=== PATIENT | male | born 1935 | race Caucasian/White ===

== ENCOUNTER 2018-02-01 05:59 | Emergency (ER) | payer MEDICARE, OTHER ==
--- NOTE | 2018-02-01 07:42 | EDM.PDOC ---
ED HPI GENERAL MEDICAL PROBLEM - General Chief Complaint: Abdominal Pain Stated Complaint: ABD PAIN Time Seen by Provider: 02/01/18 07:15 Source of Information: Reports: Patient History Limitations: Reports: No Limitations - History of Present Illness INITIAL COMMENTS - FREE TEXT/NARRATIVE: 82-year-old male developed epigastric and right upper quadrant discomfort last evening that lasted four and half hours after eating a peanut butter and barlow sandwich. He has not had pain like this before so it concerned him. He had mild nausea but no shortness of breath, no diaphoresis, no radiation of pain, no diarrhea. He took some antacid which helped moderately. He lives alone so it concerned him so he called his neighbor but by the time he got to the hospital it was gone. He does have a pacemaker but he had no chest discomfort, he also had an angiogram within the last 2 years which was normal. Onset: Gradual Duration: Hour(s): Location: Reports: Abdomen (Pain lasted for half hours) Quality: Reports: Ache, Pressure Severity: Moderate Associated Symptoms: Reports: Loss of Appetite, Malaise. Denies: Chest Pain, Cough, Fever/Chills, Headaches, Shortness of Breath Right Upper Abdomen Pain Score (Numeric/FACES): 1 - Related Data Allergies Allergy/AdvReac Type Severity Reaction Status Date / Time No Known Allergies Allergy Verified 02/01/18 06:43 Home Meds: Home Meds Adalimumab [Humira] 40 mg SQ ASDIRECTED 02/01/18 [History] Finasteride 5 mg PO DAILY 02/01/18 [History] Lisinopril 10 mg PO DAILY 02/01/18 [History] Metoprolol Succinate 100 mg PO DAILY 02/01/18 [History] [place]-3/DHA/Epa/Fish Oil [Fish Oil 1,360 mg Softgel] 1 tab PO DAILY 02/01/18 [ History] Rivaroxaban [Xarelto] 20 mg PO DAILY 02/01/18 [History] Simvastatin [Zocor] 10 mg PO BEDTIME 02/01/18 [History] metFORMIN [Glucophage] 1,000 mg PO BIDMEALS 02/01/18 [History] Past Medical History HEENT History: Reports: Impaired Vision Cardiovascular History: Reports: Hypertension Endocrine/Metabolic History: Reports: Diabetes, Type II - Infectious Disease History Infectious Disease History: Reports: Chicken Pox, Measles, Mumps Social & Family History - Tobacco Use Smoking Status *Q: Never Smoker - Caffeine Use Caffeine Use: Reports: Coffee - Recreational Drug Use Recreational Drug Use: No ED ROS GENERAL - Review of Systems Review Of Systems: See Below Constitutional: Denies: Fever, Chills HEENT: Reports: No Symptoms Respiratory: Denies: Shortness of Breath Cardiovascular: Denies: Chest Pain GI/Abdominal: Reports: Abdominal Pain, Nausea. Denies: Diarrhea, Vomiting : Reports: No Symptoms Skin: Reports: No Symptoms Neurological: Reports: No Symptoms ED EXAM, GENERAL - Physical Exam Exam: See Below Exam Limited By: No Limitations General Appearance: Alert, No Apparent Distress Eye Exam: Bilateral Eye: Normal Inspection (No jaundice) Respiratory/Chest: No Respiratory Distress, Lungs Clear Cardiovascular: Regular Rate, Rhythm GI/Abdominal: Normal Bowel Sounds, Soft, Non-Tender Neurological: Alert, Oriented Psychiatric: Normal Affect, Normal Mood Course - Vital Signs Last Recorded V/S: Last Vital Signs Temp 95.7 F 02/01/18 06:37 Pulse 62 02/01/18 06:37 Resp 20 02/01/18 06:37 BP 178/76 H 02/01/18 06:37 Pulse Ox 98 02/01/18 06:37 - Re-Assessments/Exams Free Text/Narrative Re-Assessment/Exam: 02/01/18 07:41 I cannot reproduce his pain, he is totally asymptomatic with normal vitals. This sounds like it was gastrointestinal but resolved. He was comfortable without a workup at this time, if symptoms recur he'll return and even if they resolved by the time he gets here we'll do some investigation. He's going increase his diet as tolerated. Departure - Departure Time of Disposition: 07:54 Disposition: Home, Self-Care 01 Condition: Good Clinical Impression: Abdominal pain Qualifiers: Abdominal location: right upper quadrant Qualified Code(s): R10.11 - Right upper quadrant pain - Discharge Information Instructions: Abdominal Pain, Adult, [id number] Referrals: PCP,None [Primary Care Provider] - Forms: ED Department Discharge Care Plan Goals: Advance diet as tolerated. Return at any time if symptoms recur or you develop other concerns. After you have been well for several days, consider trying peanut butter on a pizza.
== END 2018-02-01 07:54 | disposition home or self-care (01) ==
LOC: JP.ED 05:59
DX: R10.11 Right upper quadrant pain (principal); I10 Essential (primary) hypertension; E11.9 Type 2 diabetes mellitus without complications; Z79.899 Other long term (current) drug therapy
CPT/HCPCS: 99282; 99284

== ENCOUNTER 2020-08-10 16:33 | Emergency (ER) | payer MEDICARE, OTHER ==
[2020-08-10] MEDS ORDERED: HYDROmorphone 1 MG/ML Syringe IM ONE (16:57)
--- NOTE | 2020-08-10 17:01 | EDM.PDOC ---
ED HPI GENERAL MEDICAL PROBLEM - General Chief Complaint: Cardiovascular Problem Stated Complaint: HIGH BP Time Seen by Provider: 08/10/20 16:55 Source of Information: Reports: Patient, RN Notes Reviewed History Limitations: Reports: No Limitations - History of Present Illness INITIAL COMMENTS - FREE TEXT/NARRATIVE: 84-year-old gentleman presents emergency department with a complaint of dental pain, he was at the dentist planning to get his tooth worked on by pulling and abscess removal and the dentist has provided pain medication and antibiotics however prior to the procedure he noticed his blood pressure was quite high systolic around 200 subsequently sent to the emergency department for evaluation, he denies any shortness of breath or chest pain complains of dental pain Lower Tooth/Teeth Pain Score (Numeric/FACES): 9 - Related Data Allergies Allergy/AdvReac Type Severity Reaction Status Date / Time No Known Allergies Allergy Verified 08/10/20 16:48 Home Meds: Home Meds Adalimumab [Humira] 40 mg SQ ASDIRECTED 02/01/18 [History] Finasteride 5 mg PO DAILY 02/01/18 [History] Lisinopril 10 mg PO DAILY 02/01/18 [History] Metoprolol Succinate 100 mg PO DAILY 02/01/18 [History] [place]-3/DHA/Epa/Fish Oil [Fish Oil 1,360 mg Softgel] 1 tab PO DAILY 02/01/18 [Hi story] Rivaroxaban [Xarelto] 20 mg PO DAILY 02/01/18 [History] Simvastatin [Zocor] 10 mg PO BEDTIME 02/01/18 [History] metFORMIN [Glucophage] 1,000 mg PO BIDMEALS 02/01/18 [History] Past Medical History HEENT History: Reports: Impaired Vision Cardiovascular History: Reports: Hypertension Respiratory History: Reports: None Gastrointestinal History: Reports: None Genitourinary History: Reports: None Musculoskeletal History: Reports: None Neurological History: Reports: None Psychiatric History: Reports: None Endocrine/Metabolic History: Reports: Diabetes, Type II Dermatologic History: Reports: Psoriasis - Infectious Disease History Infectious Disease History: Reports: Chicken Pox, Measles, Mumps - Past Surgical History Head Surgeries/Procedures: Reports: None Social & Family History - Tobacco Use Tobacco Use Status *Q: Never Tobacco User - Caffeine Use Caffeine Use: Reports: Coffee ED ROS GENERAL - Review of Systems Review Of Systems: See Below HEENT: Reports: Dental Pain Respiratory: Reports: No Symptoms Cardiovascular: Reports: No Symptoms ED EXAM, GENERAL - Physical Exam Exam: See Below Exam Limited By: No Limitations General Appearance: Alert (While I see that), WD/WN, No Apparent Distress Respiratory/Chest: No Respiratory Distress, Lungs Clear, Normal Breath Sounds, No Accessory Muscle Use, Chest Non-Tender Cardiovascular: Regular Rate, Rhythm, No Murmur Course - Vital Signs Last Recorded V/S: Last Vital Signs Temp 96.5 F L 08/10/20 16:50 Pulse 62 08/10/20 18:13 Resp 16 08/10/20 16:50 BP 212/92 H 08/10/20 18:13 Pulse Ox 94 L 08/10/20 18:09 - Orders/Labs/Meds Meds: Medications Discontinued Medications Generic Name Dose Route Start Last Admin Trade Name Johnq PRN Reason Stop Dose Admin Hydromorphone HCl 1 mg 08/10/20 16:57 08/10/20 17:03 Dilaudid IM 08/10/20 16:58 1 mg ONETIME ONE Administration Metoprolol Succinate 100 mg 08/10/20 17:57 08/10/20 18:13 Toprol Xl PO 08/10/20 17:58 100 mg ONETIME ONE Administration Departure - Departure Time of Disposition: 18:19 Disposition: Home, Self-Care 01 Condition: Fair Clinical Impression: Pain, dental Referrals: PCP,None [Primary Care Provider] - Forms: ED Department Discharge Additional Instructions: Continue with your regular medications do not take an extra metoprolol tonight, please keep your follow-up appointment with dentistry call return to the emergency department worsening of symptoms Sepsis Event Note (ED) - Evaluation Sepsis Screening Result: No Definite Risk - Focused Exam Vital Signs: Vital Signs Temp Pulse Pulse Resp BP BP Pulse Ox 08/10/20 18:13 62 212/92 H 08/10/20 18:09 60 212/92 H 94 L 08/10/20 17:46 59 L 212/94 H 94 L 08/10/20 17:15 59 L 229/97 H 95 08/10/20 16:50 96.5 F L 60 16 219/97 H 95 08/10/20 16:47 96.5 F L 60 16 219/97 H 95 - Assessment/Plan Plan: Assessment Acuity = acute Site and laterality = dental pain Etiology = dental abscess Manifestations = hypertension urgency Location of injury = Home Lab values = none Plan 1 mg Dilaudid did provide good pain relief for him, he has not taken his evening dose of metoprolol that was provided for him within 15 minutes of taking that medication his blood pressure did fall below 200, plan is to discharge home he does have antibiotics and pain medication for his dental abscess will continue to follow with dentistry This note was dictated using [employer] voice recognition software please call with any questions on syntax or grammar.
[2020-08-10] MEDS ORDERED: Metoprolol Succinate 50 MG Tab.ER PO ONE (17:57)
== END 2020-08-10 18:46 | disposition home or self-care (01) ==
LOC: JP.ED 16:33
DX: K08.89 Other specified disorders of teeth and supporting structures (principal); I10 Essential (primary) hypertension; E11.9 Type 2 diabetes mellitus without complications; Z79.84 Long term (current) use of oral hypoglycemic drugs; Z79.01 Long term (current) use of anticoagulants; Z79.899 Other long term (current) drug therapy
CPT/HCPCS: 96372; 99282; A9270; J1170

== ENCOUNTER 2020-08-19 03:40 | Emergency (ER) | payer MEDICARE ==
--- NOTE | 2020-08-19 04:37 | EDM.PDOC ---
ED HPI GENERAL MEDICAL PROBLEM - General Chief Complaint: ENT Problem Stated Complaint: TOOTH PULLED STILL BLEEDING Time Seen by Provider: 08/19/20 04:10 Source of Information: Reports: Patient, Old Records History Limitations: Reports: No Limitations - History of Present Illness INITIAL COMMENTS - FREE TEXT/NARRATIVE: 85 yo male on Xarelto presents with mouth bleeding after a dental extraction yesterday morning. Is here with his . Onset: Gradual Onset Date: 08/18/20 Onset Time: 21:00 Duration: Hour(s):, Constant Location: Reports: Face (mouth) Quality: Reports: Dull Severity: Mild Improves with: Reports: None Worsens with: Reports: None Context: Reports: Other (See HPI) Associated Symptoms: Reports: No Other Symptoms Treatments PATIENT CARE ASSISTANT: Reports: Other (see below) (gauze/pressure) denies pain Pain Score (Numeric/FACES): 0 - Related Data Allergies Allergy/AdvReac Type Severity Reaction Status Date / Time No Known Allergies Allergy Verified 08/19/20 03:54 Home Meds: Home Meds Adalimumab [Humira] 40 mg SQ ASDIRECTED 02/01/18 [History] Finasteride 5 mg PO DAILY 02/01/18 [History] Lisinopril 10 mg PO DAILY 02/01/18 [History] Metoprolol Succinate 100 mg PO DAILY 02/01/18 [History] [place]-3/DHA/Epa/Fish Oil [Fish Oil 1,360 mg Softgel] 1 tab PO DAILY 02/01/18 [History] Rivaroxaban [Xarelto] 20 mg PO DAILY 02/01/18 [History] Simvastatin [Zocor] 10 mg PO BEDTIME 02/01/18 [History] metFORMIN [Glucophage] 1,000 mg PO BIDMEALS 02/01/18 [History] Past Medical History HEENT History: Reports: Impaired Vision Cardiovascular History: Reports: Afib, Hypertension, Pacemaker Respiratory History: Reports: None Gastrointestinal History: Reports: None Genitourinary History: Reports: None Musculoskeletal History: Reports: None Neurological History: Reports: None Psychiatric History: Reports: None Endocrine/Metabolic History: Reports: Diabetes, Type II Dermatologic History: Reports: Psoriasis - Infectious Disease History Infectious Disease History: Reports: Chicken Pox, Measles, Mumps - Past Surgical History Head Surgeries/Procedures: Reports: None HEENT Surgical History: Reports: Other (See Below) Other HEENT Surgeries/Procedures: front lower tooth extracted 08/18/20 at 0800 Social & Family History - Tobacco Use Tobacco Use Status *Q: Never Tobacco User - Caffeine Use Caffeine Use: Reports: Coffee - Recreational Drug Use Recreational Drug Use: No ED ROS ENT - Review of Systems Review Of Systems: See Below Constitutional: Reports: No Symptoms HEENT: Reports: Other (oral bleeding) Cardiovascular: Reports: No Symptoms Skin: Reports: No Symptoms Neurological: Reports: No Symptoms ED EXAM, ENT - Physical Exam Exam: See Below Exam Limited By: No Limitations General Appearance: Alert, WD/WN, No Apparent Distress Eye Exam: Bilateral Eye: Normal Inspection Ears: Normal External Exam, Normal Canal, Hearing Grossly Normal Nose: Normal Inspection, No Blood Mouth/Throat: Normal Lips, Normal Oropharynx, Bleeding. No: Normal Teeth (recent lower central incisor extraction. ), Dental Pain Head: Atraumatic, Normocephalic Respiratory/Chest: No Respiratory Distress, No Accessory Muscle Use Cardiovascular: Regular Rate, Rhythm Neurological: Alert, Oriented, CN II-XII Intact, Normal Cognition, No Motor/Sensory Deficits Psychiatric: Normal Affect, Normal Mood Skin: Warm, Dry, Intact, Normal Color, No Rash Course - Vital Signs Last Recorded V/S: Last Vital Signs Temp 35.3 C L 08/19/20 04:03 Pulse 60 08/19/20 04:03 Resp 14 08/19/20 04:03 BP 166/73 H 08/19/20 04:03 Pulse Ox 96 08/19/20 04:03 - Re-Assessments/Exams Free Text/Narrative Re-Assessment/Exam: 08/19/20 04:37 had patient bite down on a wetted black tea bag. After about 25 min I re- examined him and the bleeding had stopped. 08/19/20 05:13 Departure - Departure Time of Disposition: 05:15 Disposition: Home, Self-Care 01 Condition: Good Clinical Impression: Postoperative bleeding from mouth - Discharge Information *PRESCRIPTION DRUG MONITORING PROGRAM REVIEWED*: Not Applicable *COPY OF PRESCRIPTION DRUG MONITORING REPORT IN PATIENT MIL: Not Applicable Referrals: PCP,None [Primary Care Provider] - Forms: ED Department Discharge Additional Instructions: Acetaminophen as needed for pain relief. Bite down on a wetted black tea bag to control bleeding. Recheck as needed. Sepsis Event Note (ED) - Evaluation Sepsis Screening Result: No Definite Risk - Focused Exam Vital Signs: Vital Signs Temp Pulse Resp BP Pulse Ox 08/19/20 04:03 35.3 C L 60 14 166/73 H 96 08/19/20 04:02 35.3 C L 60 14 166/73 H 96
== END 2020-08-19 05:21 | disposition home or self-care (01) ==
LOC: JP.ED 03:40
DX: K91.841 Postprocedural hemorrhage of a digestive system organ or structure following other procedure (principal); I48.91 Unspecified atrial fibrillation; I10 Essential (primary) hypertension; E11.9 Type 2 diabetes mellitus without complications; Z79.84 Long term (current) use of oral hypoglycemic drugs; Z79.01 Long term (current) use of anticoagulants; Z79.899 Other long term (current) drug therapy
CPT/HCPCS: 99283

== ENCOUNTER 2020-08-19 17:29 | Emergency (ER) | payer MEDICARE ==
[2020-08-19] MEDS ORDERED: Bupivacaine 0.5%/EPINEPHrine 1:200,000 1.8 ML Cartridge INJECT ONE (18:06)
--- NOTE | 2020-08-19 18:29 | EDM.PDOC ---
ED HPI GENERAL MEDICAL PROBLEM - General Chief Complaint: ENT Problem Stated Complaint: MOUTH BLEEDING Time Seen by Provider: 08/19/20 18:10 Source of Information: Reports: Patient History Limitations: Reports: No Limitations - History of Present Illness INITIAL COMMENTS - FREE TEXT/NARRATIVE: 85-year-old male who had an extraction of his lower incisor yesterday at the dentist office. He is on Xarelto and is having persistent oozing on the anterior aspect of the extraction. He had to sleep in a chair last night because it kept slowly oozing and it was bothersome. He called the dentist office this morning and they told him to come to the emergency room. He was seen, and encouraged to just use topical teabags until bleeding stops but that is not working. Onset: Sudden (36 hours ago after dental extraction) Associated Symptoms: Reports: No Other Symptoms Denies Pain Score (Numeric/FACES): 0 - Related Data Allergies Allergy/AdvReac Type Severity Reaction Status Date / Time No Known Allergies Allergy Verified 08/19/20 18:17 Home Meds: Home Meds Adalimumab [Humira] 40 mg SQ ASDIRECTED 02/01/18 [History] Finasteride 5 mg PO DAILY 02/01/18 [History] Lisinopril 10 mg PO DAILY 02/01/18 [History] Metoprolol Succinate 100 mg PO DAILY 02/01/18 [History] [place]-3/DHA/Epa/Fish Oil [Fish Oil 1,360 mg Softgel] 1 tab PO DAILY 02/01/18 [History] Rivaroxaban [Xarelto] 20 mg PO DAILY 02/01/18 [History] Simvastatin [Zocor] 10 mg PO BEDTIME 02/01/18 [History] metFORMIN [Glucophage] 1,000 mg PO BIDMEALS 02/01/18 [History] Past Medical History HEENT History: Reports: Impaired Vision Cardiovascular History: Reports: Afib, Hypertension, Pacemaker Respiratory History: Reports: None Gastrointestinal History: Reports: None Genitourinary History: Reports: None Musculoskeletal History: Reports: None Neurological History: Reports: None Psychiatric History: Reports: None Endocrine/Metabolic History: Reports: Diabetes, Type II Dermatologic History: Reports: Psoriasis - Infectious Disease History Infectious Disease History: Reports: Chicken Pox, Measles, Mumps - Past Surgical History Head Surgeries/Procedures: Reports: None HEENT Surgical History: Reports: Other (See Below) Other HEENT Surgeries/Procedures: front lower tooth extracted 08/18/20 at 0800 Social & Family History - Tobacco Use Tobacco Use Status *Q: Never Tobacco User Second Hand Smoke Exposure: No - Caffeine Use Caffeine Use: Reports: Coffee - Recreational Drug Use Recreational Drug Use: No ED ROS ENT - Review of Systems Review Of Systems: See Below Constitutional: Denies: Fever, Chills Respiratory: Denies: Shortness of Breath Cardiovascular: Denies: Chest Pain GI/Abdominal: Reports: Nausea (Becoming somewhat nauseous from a bleeding) Neurological: Reports: No Symptoms ED EXAM, ENT - Physical Exam Exam: See Below Exam Limited By: No Limitations General Appearance: Alert, No Apparent Distress Mouth/Throat: Other (There is a dental extraction of the right incisor on the mandible with some slow but steady oozing coming from the anterior aspect of the extraction) Course - Vital Signs Last Recorded V/S: Last Vital Signs Temp 96.7 F L 08/19/20 18:25 Pulse 58 L 08/19/20 18:25 Resp 16 08/19/20 18:25 BP 146/72 H 08/19/20 18:25 Pulse Ox 96 08/19/20 18:25 - Orders/Labs/Meds Meds: Medications Discontinued Medications Generic Name Dose Route Start Last Admin Trade Name Gunjan PRN Reason Stop Dose Admin Bupivacaine HCl/Epinephrine Bitart 1.8 ml 08/19/20 18:06 08/19/20 18:28 Marcaine 0.5%/Epinephrine 1:200,000 INJECT 08/19/20 18:07 1.8 ml ONETIME ONE Administration - Re-Assessments/Exams Free Text/Narrative Re-Assessment/Exam: 08/19/20 19:11 The areas were infiltrated with lidocaine and epinephrine, it was cleaned with cold icy water, dried, cauterized with silver nitrate, and then a small amount of Surgicel was placed over the wound. He was monitored for 15 minutes with no active bleeding. He will return if the Surgicel falls off and bleeding recurs Departure - Departure Time of Disposition: 18:38 Disposition: Home, Self-Care 01 Clinical Impression: Surgical wound hemorrhage after dental procedure - Discharge Information Instructions: Bleeding Precautions When on Anticoagulant Therapy, Pediatric Referrals: Anthony Yepez MD [Primary Care Provider] - Forms: ED Department Discharge Care Plan Goals: Try to keep packing in place, if it helps to have a tea bag over it that is okay. Return if bleeding recurs and is persistent. Sepsis Event Note (ED) - Evaluation Sepsis Screening Result: No Definite Risk - Focused Exam Vital Signs: Vital Signs Temp Pulse Resp BP Pulse Ox 08/19/20 18:25 96.7 F L 58 L 16 146/72 H 96 08/19/20 17:50 96.7 F L 58 L 16 146/72 H 96
== END 2020-08-19 18:38 | disposition home or self-care (01) ==
LOC: JP.ED 17:29
DX: K91.840 Postprocedural hemorrhage of a digestive system organ or structure following a digestive system procedure (principal); I48.91 Unspecified atrial fibrillation; I10 Essential (primary) hypertension; E11.9 Type 2 diabetes mellitus without complications; Z79.84 Long term (current) use of oral hypoglycemic drugs; Z79.899 Other long term (current) drug therapy; Z79.01 Long term (current) use of anticoagulants
CPT/HCPCS: 12011; 17250; 99283; 99285; J3490

== ENCOUNTER 2020-08-19 23:05 | Emergency (ER) | payer MEDICARE ==
[2020-08-19] MEDS ORDERED: Bupivacaine 0.5%/EPINEPHrine 1:200,000 1.8 ML Cartridge INJECT ONE (23:23)
--- NOTE | 2020-08-20 00:05 | EDM.PDOC ---
ED HPI GENERAL MEDICAL PROBLEM - General Chief Complaint: ENT Problem Stated Complaint: BLEEDING TOOTH Time Seen by Provider: 08/19/20 23:40 Source of Information: Reports: Patient History Limitations: Reports: No Limitations - History of Present Illness INITIAL COMMENTS - FREE TEXT/NARRATIVE: 85-year-old male who arrives for the third time today with bleeding from the extraction of his lower incisor. I saw him earlier, infiltrated epinephrine, did some cautery and covered with Surgicel and there was no bleeding for 5 hours but just as he was going to bed it started oozing again. Onset: Sudden (Started bleeding 1/2-hour ago) - Related Data Allergies Allergy/AdvReac Type Severity Reaction Status Date / Time No Known Allergies Allergy Verified 08/19/20 23:15 Home Meds: Home Meds Adalimumab [Humira] 40 mg SQ ASDIRECTED 02/01/18 [History] Finasteride 5 mg PO DAILY 02/01/18 [History] Lisinopril 10 mg PO DAILY 02/01/18 [History] Metoprolol Succinate 100 mg PO DAILY 02/01/18 [History] [place]-3/DHA/Epa/Fish Oil [Fish Oil 1,360 mg Softgel] 1 tab PO DAILY 02/01/18 [History] Rivaroxaban [Xarelto] 20 mg PO DAILY 02/01/18 [History] Simvastatin [Zocor] 10 mg PO BEDTIME 02/01/18 [History] metFORMIN [Glucophage] 1,000 mg PO BIDMEALS 02/01/18 [History] Past Medical History HEENT History: Reports: Impaired Vision Cardiovascular History: Reports: Afib, Hypertension, Pacemaker Respiratory History: Reports: None Gastrointestinal History: Reports: None Genitourinary History: Reports: None Musculoskeletal History: Reports: None Neurological History: Reports: None Psychiatric History: Reports: None Endocrine/Metabolic History: Reports: Diabetes, Type II Dermatologic History: Reports: Psoriasis - Infectious Disease History Infectious Disease History: Reports: Chicken Pox, Measles, Mumps - Past Surgical History Head Surgeries/Procedures: Reports: None HEENT Surgical History: Reports: Other (See Below) Other HEENT Surgeries/Procedures: front lower tooth extracted 08/18/20 at 0800 Social & Family History - Tobacco Use Tobacco Use Status *Q: Never Tobacco User - Caffeine Use Caffeine Use: Reports: Coffee - Recreational Drug Use Recreational Drug Use: No ED ROS ENT - Review of Systems Review Of Systems: See Below Constitutional: Denies: Fever, Chills Respiratory: Denies: Shortness of Breath Cardiovascular: Denies: Chest Pain GI/Abdominal: Denies: Nausea, Vomiting Neurological: Reports: No Symptoms. Denies: Headache ED EXAM, ENT - Physical Exam Exam: See Below Exam Limited By: No Limitations General Appearance: Alert, No Apparent Distress Mouth/Throat: Other (Patient again has oozing from the extraction site of the right mandibular incisor) Respiratory/Chest: No Respiratory Distress Course - Vital Signs Last Recorded V/S: Last Vital Signs Temp 97.9 F 08/19/20 23:25 Pulse 60 08/19/20 23:25 Resp 15 08/19/20 23:25 BP 140/69 08/19/20 23:25 Pulse Ox 97 08/19/20 23:25 - Orders/Labs/Meds Meds: Medications Discontinued Medications Generic Name Dose Route Start Last Admin Trade Name Gunjan PRN Reason Stop Dose Admin Bupivacaine HCl/Epinephrine Bitart 1.8 ml 08/19/20 23:23 08/19/20 23:34 Marcaine 0.5%/Epinephrine 1:200,000 INJECT 08/19/20 23:24 1.8 ml ONETIME ONE Administration Tranexamic Acid 500 mg 08/19/20 23:23 08/19/20 23:47 Cyklokapron TOP 08/19/20 23:24 500 mg ONETIME ONE Administration - Re-Assessments/Exams Free Text/Narrative Re-Assessment/Exam: 08/20/20 06:42 Area was again infiltrated with lidocaine and epinephrine, then flushed thoroughly with cold water. Two 6-0 Vicryl sutures were crossed across the area, liquid TXA was then soaked into the area, and TXA soaked Surgicel was packed over the wound. He will return if bleeding recurs. Departure - Departure Time of Disposition: 00:11 Disposition: Home, Self-Care 01 Clinical Impression: Postoperative bleeding from mouth - Discharge Information Instructions: Bleeding Precautions When on Anticoagulant Therapy, Pediatric Referrals: PCP,None [Primary Care Provider] - Forms: ED Department Discharge Care Plan Goals: Hold your blood thinner for the next couple of days and return if bleeding recurs and is persistent. Sepsis Event Note (ED) - Evaluation Sepsis Screening Result: No Definite Risk - Focused Exam Vital Signs: Vital Signs Temp Pulse Resp BP Pulse Ox 08/19/20 23:25 97.9 F 60 15 140/69 97
== END 2020-08-20 00:11 | disposition home or self-care (01) ==
LOC: JP.ED 23:05
DX: K91.840 Postprocedural hemorrhage of a digestive system organ or structure following a digestive system procedure (principal); I48.91 Unspecified atrial fibrillation; I10 Essential (primary) hypertension; E11.9 Type 2 diabetes mellitus without complications; Z79.01 Long term (current) use of anticoagulants; Z79.84 Long term (current) use of oral hypoglycemic drugs
CPT/HCPCS: 12011; 41899; 99283-25; J3490